=== PATIENT | male | born 1965 | race Caucasian/White ===

== ENCOUNTER → 2016-10-22 | Outpatient (CLI) | payer OTHER | END | disposition home or self-care (01) | LOC: XYW 10:53 | PROVIDERS: ATTEND Internal Medicine | DX: I82.403 Acute embolism and thrombosis of unspecified deep veins of lower extremity, bilateral (principal); M71.22 Synovial cyst of popliteal space [Baker], left knee; M71.21 Synovial cyst of popliteal space [Baker], right knee | CPT/HCPCS: 93970 ==

== ENCOUNTER → 2016-10-30 | Outpatient (CLI) | payer OTHER | END | disposition home or self-care (01) | LOC: XYW 13:41 | PROVIDERS: ATTEND Obstetrics & Gynecology | DX: I82.403 Acute embolism and thrombosis of unspecified deep veins of lower extremity, bilateral (principal); M71.21 Synovial cyst of popliteal space [Baker], right knee; M79.89 Other specified soft tissue disorders | CPT/HCPCS: 93970 ==